=== PATIENT | female | born 1990 | race African-American/Black ===

== ENCOUNTER 2018-10-19 08:37 | Emergency (ER) | payer MEDICAID ==
[~2018-10-19] VITALS: Ht 167.6 cm; Wt 68.0 kg
[2018-10-19] MEDS ORDERED: IBUPROFEN 600MG TABLET PO ONE (10:15)
[2018-10-19 12:30] VITALS: BP 118/80
== END 2018-10-19 12:48 | disposition home or self-care (01) ==
LOC: ER 08:37
DX: S02.32XA Fracture of orbital floor, left side, initial encounter for closed fracture (principal); M25.511 Pain in right shoulder; D64.9 Anemia, unspecified; J45.909 Unspecified asthma, uncomplicated; M25.562 Pain in left knee; V49.49XA Driver injured in collision with other motor vehicles in traffic accident, initial encounter; Y93.89 Activity, other specified; Y92.89 Other specified places as the place of occurrence of the external cause; Y99.8 Other external cause status
CPT/HCPCS: 70486; 71045; 73030; 81025; 99284